=== PATIENT | male | born 1950 | race Caucasian/White ===

== ENCOUNTER 2019-06-12 16:07 | Observation (INO) ==
--- NOTE | 2019-06-12 16:14 | Diag Imaging Result Doc PS360 ---
CT HEAD W/O CONTRAST - 06/12/2019 INDICATION: stroke like sx COMPARISON: None FINDINGS: The ventricles and sulci are normal in size and contour. No intracranial mass or hemorrhage. The skull is intact. The sinuses mastoids and middle ears are clear. There are moderate arterial calcifications of the carotid siphons bilaterally. IMPRESSION: No acute disease. This exam was performed using automated exposure control, adjustment of mA or kV according to patient size, and/or use of iterative reconstruction technique Electronically signed by Yan Prajapati 06/12/2019 4:12 PM
[2019-06-12 17:40] LABS: BASO# 0.05 X1000 (0.0-0.2); BASO% 0.5 % (0.0-0.8); EOS# 0.32 X1000 (0.0-0.7); EOS% 2.9 % (0.0-10.0); HEMATOCRIT 43.5 % (42.0-52.0); HEMOGLOBIN 14.9 g/dL (14.0-18.0); IMM GRAN# 0.02 X1000 (0.0-0.04); IMM GRAN% 0.2 % (0.0-0.5); LYMPH# 2.24 X1000 (1.2-3.4); LYMPH% 20.6 % (20.5-51.1); MCH 28.7 PG (27-31); MCHC 34.3 g/dL (33-37); MCV 83.8 FL (81-99); MONO# 0.56 X1000 (0.11-0.59); MONO% 5.1 % (1.7-9.3); MPV 10.9 FL (7.4-10.4); NEUT% 70.7 % (42.2-75.2); PLT 190 X1000 (130-400); RBC 5.19 XMIL (4.7-6.1); WBC 10.89 X1000 (4.8-10.8)
[2019-06-12 17:44] LABS: PROTIME 13.3 Seconds (11.0-16.0)
[2019-06-12 17:45] LABS: PTT 33.7 Seconds (22.3-41.8)
[2019-06-12 18:11] LABS: AGAP 14; ALB/GLOB RATIO 1.9; ALBUMIN 4.4 g/dL (3.5-5.0); ALKALINE PHOSPHATASE 63 U/L (32-122); BUN 15 mg/dL (8-22); CALCIUM 8.9 mg/dL (8.8-10.2); CHLORIDE 100 mmol/L (98-107); COSMO 281; CREATININE 0.9 mg/dL (0.7-1.2); ESTIMATED GFR > 60; GLUCOSE 116 mg/dL (70-104); GOT 23 U/L (10-34); GPT 23 U/L (10-44); SODIUM 140 mmol/L (136-145); TCO2 26 mmol/L (25-35); TOTAL BILIRUBIN 0.56 mg/dL (0.20-1.00); TOTAL PROTEIN 6.7 g/dL (6.3-8.3)
--- NOTE | 2019-06-12 18:13 | Diag Imaging Result Doc PS360 ---
CHEST-PORTABLE - 06/12/2019 INDICATION: weak COMPARISON: None FINDINGS: There are CABG changes. Heart size and pulmonary vascularity is top normal. No infiltrates or edema. No pneumothorax or pleural effusion. IMPRESSION: No specific abnormality. Electronically signed by Yan Prajapati 06/12/2019 6:10 PM
--- NOTE | 2019-06-12 18:31 | EKG Report ---
Test Performed on : 06/12/2019 5:18:17 PM Test Reason : stroke Blood Pressure : / mmHG Vent. Rate : 058 BPM Atrial Rate : 058 BPM P-R Int : 198 ms QRS Dur : 096 ms QT Int : 438 ms P-R-T Axes : 009 014 059 degrees QTc Int : 429 ms Sinus bradycardia. Inferior infarct , age undetermined Abnormal ECG No previous ECGs available Unconfirmed Result
--- NOTE | 2019-06-12 18:52 | PROVIDER DOCUMENTATION ---
This chart was entered by Eleanor Lazar Scribe, acting as scribe for Shan Delgado MD. HPI-Neurological Disorder - General Stated Complaint: STROKE LIKE SYMPTOMS Time Seen by Provider: 06/12/19 16:27 Source: patient Allergies/Adverse Reactions: Patient Allergies Allergy/AdvReac Type Severity Reaction Status Date / Time No Known Allergies Allergy Verified 06/12/19 17:21 Home Medications: Home Medication List Medication Instructions Recorded Confirmed Last Taken Type LISINOpril [Prinivil] 1 tab PO BID 10/21/16 10/24/16 10/24/16 07:00 History 1 TAB Metformin [Glucophage] 2 tab PO BID 10/21/16 10/24/16 10/24/16 07:00 History 2 TAB Nitrofurantoin Macrocrystal 1 tab PO DAILY 10/21/16 10/24/16 10/24/16 07:00 History [Nitrofurantoin] 1 TAB Tamsulosin [Flomax] 1 tab PO DAILY 10/21/16 10/24/16 10/24/16 07:00 History 1 TAB Ciprofloxacin [Cipro] 250 mg PO BID #6 tablet 10/24/16 Unknown Rx Phenazopyridine HCl [Pyridium] 100 mg PO TID #10 tablet 10/24/16 Unknown Rx - History of Present Illness-Neuro Nature of Presenting Problem: Patient is a 68 year old male who presents to the ED via EMS with stroke like symptoms. Friend states patient had slurred speech and a left side facial droop. Patient reports symptoms started at 1500. Patient states he feels normal currently. Severity: reports: mild Onset/Duration: reports: this afternoon (1500) Timing: reports: gone now Context: reports: impaired speech (slurred), facial droop (left) Character of Deficits: reports: impaired speech (slurred) New weakness or altered sensation location:: reports: left facial Associated Symptoms: reports: denies symptoms Similar Symptoms Previously?: No Recently seen or treated by another doctor?: No Review of Systems - Adult - REVIEW OF SYSTEMS - ADULT Constitutional: reports: no symptoms reported Eyes: reports: no symptoms reported Ears, Nose, Mouth & Throat: reports: no symptoms reported Cardiovascular: reports: no symptoms reported Respiratory: reports: no symptoms reported Gastrointestinal: reports: no symptoms reported Genitourinary: reports: no symptoms reported Musculoskeletal: reports: no symptoms reported Integumentary: reports: no symptoms reported Neurological: reports: no symptoms reported Psychiatric: reports: no symptoms reported Endocrine: reports: no symptoms reported Hematologic/Lymphatic: reports: no symptoms reported Allergic/Immunologic: reports: no symptoms reported All Other Systems: Reviewed and Negative Past History - Adult - PAST MEDICAL HISTORY-ADULT Review of Records: reports: Old Records Reviewed, Nursing Assessment Review, Medications Reviewed, Social history reviewed & non-contributory. Major Childhood Illnesses: reports: denies history Cardiovascular: reports: cardiac disease, HTN, hyperlipidemia Respiratory: reports: denies history Gastrointestinal: reports: denies history Obstetrical/Gynecological: reports: denies history Genitourinary: reports: prostatitis Musculoskeletal: reports: denies history Neurological: reports: denies history Endocrine/Immune: reports: Diabetes Other Conditions: reports: denies history - PRIOR SURGERIES/PROCEDURES Surgical/Procedure History: reports: CABG, cholecystectomy, cardiac stent, hernia repair - IMMUNIZATION STATUS Childhood Immunizations: See Nurse Assessment Flu Vaccine: See Nurse Assessment - FAMILY HISTORY Family History: reviewed, not pertinent - SOCIAL HISTORY Smoking: cigarettes (former) Substance Use: alcohol Alcohol Use Frequency: occasionally Physical Exam- Neurological - Physical Exam-Neuro Initial Vital Signs Reviewed: Yes General Appearance: alert, no apparent distress HENMT: normocephalic/atraumatic, moist mucous membranes Head Injury: no evidence of injury Respiratory: chest non-tender, lungs clear, normal breath sounds Cardiovascular: regular rate, rhythm, no gallop, no murmur Abdominal Exam: normal bowel sounds, non tender, soft carbon lamp cleaner Exam: normal hearing, normal speech Motor/Sensory: no motor deficit, no sensory deficit, no pronator drift Neurologic: grossly normal, no motor/sensory deficits Integumentary: normal color, normal turgor, warm/dry Psych/Mental Status: normal mood/affect, normal thought content, normal thought process, oriented x 3 - Glascow Coma Scale Best Eye Response: (4) open spontaneously Best Verbal Response: (5) oriented Best Motor Response: (6) obeys commands Total Glascow Score: 15 Progress - PLAN OF CARE/RESULTS Progress/Plan/Lab Results: Vital Signs - 8 hr 06/12/19 16:32 Temperature 98.0 F Pulse Rate 59 L Respiratory Rate 18 Blood Pressure 162/82 O2 Sat by Pulse Oximetry 98 Laboratory Results - last 24 hr 0106/12/19 06/12/19 17:26 17:26 17:26 WBC 10.89 H RBC 5.19 Hgb 14.9 Hct 43.5 MCV 83.8 MCH 28.7 MCHC 34.3 RDW Std Deviation 13.0 Plt Count 190 MPV 10.9 H Immature Gran % (Auto) 0.2 Neut % (Auto) 70.7 Lymph % (Auto) 20.6 [place] % (Auto) 5.1 Eos % (Auto) 2.9 Baso % (Auto) 0.5 Immature Gran # (Auto) 0.02 Neut # (Auto) 7.70 H Lymph # (Auto) 2.24 [place] # (Auto) 0.56 Eos # (Auto) 0.32 Baso # (Auto) 0.05 PT 13.3 INR 1.00 PTT (Actin FS) 33.7 Sodium 140 Potassium 4.0 Chloride 100 Carbon Dioxide 26 Anion Gap 14 BUN 15 Creatinine 0.9 Estimated GFR/1.73 m2 > 60 BUN/Creatinine Ratio 17 Glucose 116 H Calculated Osmolality 281 Calcium 8.9 Total Bilirubin 0.56 AST 23 ALT 23 Alkaline Phosphatase 63 Troponin T High Sens Total Protein 6.7 Albumin 4.4 Globulin 2.3 Albumin/Globulin Ratio 1.9 06/12/19 17:26 WBC RBC Hgb Hct MCV MCH MCHC RDW Std Deviation Plt Count MPV Immature Gran % (Auto) Neut % (Auto) Lymph % (Auto) [place] % (Auto) Eos % (Auto) Baso % (Auto) Immature Gran # (Auto) Neut # (Auto) Lymph # (Auto) [place] # (Auto) Eos # (Auto) Baso # (Auto) PT INR PTT (Actin FS) Sodium Potassium Chloride Carbon Dioxide Anion Gap BUN Creatinine Estimated GFR/1.73 m2 BUN/Creatinine Ratio Glucose Calculated Osmolality Calcium Total Bilirubin AST ALT Alkaline Phosphatase Troponin T High Sens 12 Total Protein Albumin Globulin Albumin/Globulin Ratio Orders Category Date Time Status CHEST-PORTABLE [RAD] Stat Exams 06/12/19 16:[address] HEAD W/O CONTRAST [CT] Stat Exams 06/12/19 15:54 Completed CBC WITH ELECTRONIC DIFF [HEME] Stat Lab 06/12/19 17:26 Completed COMPREHENSIVE METABOLIC PANEL [CHEM] Stat Lab 06/12/19 17:26 Completed PROTIME WITH INR [COAG] Stat Lab 06/12/19 17:26 Completed PTT [COAG] Stat Lab 06/12/19 17:26 Completed TROPONIN T HIGH SENSITIVITY Stat Lab 06/12/19 17:26 Completed EKG [EKG] Stat Ther 06/12/19 17:15 Draft upon reeval, patient back to base line neurologic status per daughter. Likely TIA, not a tPA candidate. Discussed with hospitalist service with plan for admission. Result Diagrams: 06/12/19 17:26 06/12/19 17:26 - EKG 1 EKG Read and Signed by:: Shan Delgado (nsr 60 no ectopy) - CT/MRI 1 CT Study: Head Impression: See EMR Report ( CT HEAD W/O CONTRAST - 06/12/2019 INDICATION: stroke like sx COMPARISON: None FINDINGS: The ventricles and sulci are normal in size and contour. No intracranial mass or hemorrhage. The skull is intact. The sinuses mastoids and middle ears are clear. There are moderate arterial calcifications of the carotid siphons bilaterally. IMPRESSION: No acute disease. This exam was performed using automated exposure control, adjustment of mA or kV according to patient size, and/or use of iterative reconstruction technique Electronically signed by Yan Prajapati 06/12/2019 4:12 PM 06/12/19 1612 Interpreting Physician: Yan Prajapati MD Dictated Date/Time: 06/12/19 161 cc: Shan Delgado MD;) Departure - Departure Date of Disposition Decision: 06/12/19 Time of Disposition Decision: 18:51 DIAGNOSIS: TIA (transient ischemic attack) Disposition: ADMITTED INPATIENT 09 Certified Medical Emergency: Emergent Condition: Serious - Critical Care Note This patient required my direct & personal management of CC.: No Attestation - Physician/ MASON Attestation The physician spent face to face time with patient:: Yes Advanced Practice Provider documentation review:: Supervising physician onsite and consulted in the evaluation and care of this patient. The physician did have a face to face encounter with the patient. This chart was documented by the indicated scribe, (Eleanor Lazar Scribe) and accurately reflects the services I performed and decisions made by me, Shan Delgado MD, as attested by the provider's signature.
[2019-06-12] MEDS ORDERED: LIPITOR PO SCH (23:00)
[2019-06-12] MEDS: NS 1,000 ML IV SCH (23:26)
[2019-06-13] MEDS ORDERED: CRESTOR PO ONE (00:03)
[2019-06-13 05:40] LABS: HEMOGLOBIN A1C 6.2 % (4.8-6.0)
[2019-06-13 05:49] LABS: CHOLESTEROL 117 mg/dL (0-200); HDL 32 mg/dL (35-55); LDL 59 mg/dL; TRIGLYCERIDES 131 mg/dL (39-160); VLDL 26 mg/dL
[2019-06-13] MEDS ORDERED: ELAVIL PO SCH ×2 (09:00→21:00)
[2019-06-13] MEDS ORDERED: ASPIRIN PO SCH (09:00)
[2019-06-13] MEDS ORDERED: FISH OIL CONCENTRATE PO SCH (09:00)
[2019-06-13] MEDS ORDERED: LOPRESSOR PO SCH (09:00)
[2019-06-13] MEDS ORDERED: LOVENOX SUBQ SCH (09:00)
--- NOTE | 2019-06-13 09:34 | HISTORY AND PHYSICAL ---
CHIEF COMPLAINT: Slowed speech which was noted prior to admission. HISTORY OF PRESENT ILLNESS: Mr. Simran Guevara is a 68-year-old male who has a history of coronary artery disease, hypertension as well as type 2 diabetes mellitus. The patient developed sudden onset of slurred speech about 3 p.m. on 06/12/2019. According to the patient, it lasted about 10 minutes. Denies any headaches, dizziness, loss of consciousness. Denies any weakness in the limbs. No previous history of CVA. Presented to the hospital. The patient did have a CT scan of the brain done without contrast which did not reveal any acute disease. The patient has now been admitted to the floor now for further management. PAST MEDICAL HISTORY: Hypertension, type 2 diabetes mellitus, coronary artery disease as well as hyperlipidemia. PAST SURGICAL HISTORY: The patient has had CABG, cholecystectomy, PTCA as well as a hernia repair. SOCIAL HISTORY: No history of cigarette smoking, alcohol or drug use. ALLERGIES: No known drug allergies. FAMILY HISTORY: Positive for cancer. MEDICATIONS: Include the following: Aspirin 325 mg p.o. daily, lisinopril 20 mg p.o. twice a day, metformin 1 g twice a day, rosuvastatin 10 mg p.o. at bedtime, Elavil 10 mg p.o. daily, metoprolol 25 mg p.o. daily, [place]-3 fatty acid 1 capsule twice a day. REVIEW OF SYSTEMS: Constitutional: No fever. Central nervous system: No headaches. Eyes: No blurred vision. ENT: Hearing loss in the right ear. Cardiovascular: No chest pain. Respiratory: Has cough. Gastrointestinal: No nausea, vomiting, diarrhea. No abdominal pain. Genitourinary: No dysuria. Dermatology: No skin lesions. Hematology: No bleeding problems. Musculoskeletal: No joint pains. Endocrinology: Has diabetes. No thyroid disease. Psychiatric: No anxiety or depression. Allergic/immunology: No symptoms suggestive of allergic rhinitis. PHYSICAL EXAMINATION: VITAL SIGNS: Temperature 97.8 degrees, pulse 70, respirations 20, blood pressure 146/81, oxygen saturation 95%. HEENT: Patient is atraumatic, normocephalic. He is anicteric. Pupils are equal, poorly reactive to light. Extraocular movements intact. No oral lesions noted. NECK: No lymphadenopathy or thyromegaly. CARDIOVASCULAR: S1, S2. RESPIRATORY: Has evidence of good air entry bilaterally. ABDOMEN: Soft, nontender. No masses felt. EXTREMITIES: No evidence of edema. CENTRAL NERVOUS SYSTEM: The patient is awake, alert, well oriented. Speech is normal. Has good strength in the extremities. The patient's gait is not assessed. LABORATORY DATA: WBCs 10.89, hematocrit is 43.5 with a platelet count of 190,000. INR is 1.0. Sodium is 140, potassium 4.0, chloride is 100, bicarb 26, BUN is 15, creatinine 0.9. DIAGNOSTIC DATA: CT scan of the brain, no acute disease. Chest x-ray, no specific abnormalities noted. EKG shows evidence of sinus bradycardia with evidence of inferior infarct, age undetermined. ASSESSMENT AND PLAN: 1. Probable transient ischemic attack. We will maintain patient on aspirin. Place patient on a statin. Obtain an MRI of the brain as well as an MRA of the brain. Also get an MRA of the neck. A 2D echo of the heart. Place patient on telemetry. Recommend PT and OT as well as Speech Therapy as well evaluation. Check a lipid panel. Maintain patient on Lovenox 40 subcutaneous [*]a day. The patient will need stroke education. 2. Hypertension. Allow for permissive hypertension. 3. Coronary artery disease. Asymptomatic. Place patient on telemetry. Check cardiac enzymes. Maintain patient on aspirin, beta chiara, as well as a statin. 4. Diabetes mellitus. Monitor blood sugar levels and maintain patient on sliding scale insulin. Check a hemoglobin A1c level. 5. Hyperlipidemia. Continue statin. Follow up on lipid panel. 6. Deep vein thrombosis prophylaxis. Lovenox. 7. Gastrointestinal prophylaxis. Proton pump inhibitor. cc: Jose Carr MD
[2019-06-13 11:04] VITALS: BP 148/76
[2019-06-13] MEDS: HUMULIN R SUBQ SCH ×2 (12:24→17:45)
--- NOTE | 2019-06-13 12:40 | Diag Imaging Result Doc PS360 ---
MRI BRAIN W/WO CONTRAST - 06/12/2019 INDICATION: r/o cva COMPARISON: Head CT 06/12/2019 FINDINGS: There is no area of restricted diffusion. The ventricles and sulci are normal in size and contour. No intracranial mass or hemorrhage. No significant white matter chronic microvascular ischemia. Midline structures including optic chiasm and pituitary appear normal. IMPRESSION: Negative exam. Electronically signed by Yan Prajapati 06/13/2019 12:37 PM
--- NOTE | 2019-06-13 12:44 | Diag Imaging Result Doc PS360 ---
MRA BRAIN W/O CONTRAST - 06/12/2019 INDICATION: r/o cva TECHNIQUE: Noncontrast [id number] technique was used COMPARISON: None FINDINGS: There is some smooth atherosclerotic vascular narrowing of both carotid siphons. This is moderate with about 50% narrowing bilaterally. On the right side, the anterior and middle cerebral arteries are widely patent. On the left side, the anterior cerebral artery is patent. There is a small focal plaque in the proximal M1 segment of the left middle cerebral artery. This produces mild stenosis of about 25%. The vertebral basilar arteries are all normal. The posterior cerebral arteries are patent. The major cerebellar arteries are patent. IMPRESSION: 1. Moderate atherosclerotic narrowing of the supraclinoid internal carotid arteries bilaterally. 2. Small focal plaque in the proximal, M1 segment of the left middle cerebral artery. Electronically signed by Yan Prajapati 06/13/2019 12:42 PM
--- NOTE | 2019-06-13 12:45 | Diag Imaging Result Doc PS360 ---
MRA NECK W/O CONT - 06/12/2019 INDICATION: r/o cva TECHNIQUE: Noncontrast time of flight technique was used COMPARISON: None FINDINGS: The arteries of the neck are patent bilaterally. There is no significant stenosis. No aneurysm. Anatomy is conventional. IMPRESSION: Negative exam. Electronically signed by Yan Prajapati 06/13/2019 12:43 PM
[2019-06-13] MEDS: NS 1,000 ML IV SCH (14:31)
[2019-06-13] MEDS ORDERED: CRESTOR PO SCH ×2 (21:00)
[2019-06-14] MEDS ORDERED: PRILOSEC PO SCH (07:00)
--- NOTE | 2019-06-14 12:40 | ECHO REPORT ---
ORDER DATE: 06/13/2019 INDICATIONS: CVA. FINDINGS: 1. Right atrium appears normal in size. 2. Trace tricuspid regurgitation. Insufficient data to estimate RV systolic pressure. 3. Normal RV size and systolic function. 4. Trace pulmonic insufficiency. 5. Normal left atrial size. 6. No mitral valve prolapse, and trace mitral regurgitation. 7. Dilated left ventricle with an end-diastolic dimension of 5.8 cm. Mild left ventricular hypertrophy with a posterior and interventricular septal wall thickness 1.2 cm. Normal LV systolic function. Estimated EF of 55% to 60% percent with normal wall motion. 8. Aortic valve opens well. It is trileaflet. No evidence of stenosis or insufficiency. 9. Aorta appears normal visualized segments. 10. No pericardial effusion is identified. cc: MD Noman Day MD
--- NOTE | 2019-06-15 13:49 | DISCHARGE SUMMARY ---
ADMISSION DATE: 06/12/2019 DISCHARGE DATE: 06/13/2019 DISCHARGE DIAGNOSES: 1. Transient ischemic attack. 2. Hypertension. 3. Coronary artery disease. 4. Diabetes mellitus type 2. 5. Hyperlipidemia. CONSULTATIONS: None. PROCEDURES: 1. Head CT done on admission showed no acute disease. 2. Brain MRI showed negative exam. 3. Brain MRA showed moderate arteriosclerotic narrowing of the supraclinoid internal carotid arteries bilaterally with small focal plaque in the proximal M 1 segment of the left middle cerebral artery. 4. Echocardiogram showed ejection fraction 55 to 60 percent with no pericardial effusion identified. No gross valvular abnormalities. 5. Neck MRA showed negative exam. HOSPITAL COURSE: This is a 68-year-old male with history of coronary artery disease, hypertension and diabetes, who presented to the emergency department because of sudden onset of slurred speech that has been going on for almost a day that lasts approximately 10 minutes. Upon ER evaluation, CT of the head did not show any gross abnormalities. For further workup of TIA versus MRI, he was admitted. MRI of the brain as well as MRA of head and neck shows as above. Echocardiogram also as well. At this point, patient feels much more stable with no problem with speech. So he is going to be discharged in stable condition and recommended follow up with his primary care physician in a week. DISCHARGE PHYSICAL EXAMINATION: Vital Signs: Temperature 97.6 degrees, heart rate 68, respiratory rate 18, blood pressure 148/76, O2 saturation 98% on room air. General Examination: This is a 68-year-old male, lying in bed in no acute distress. Cardiovascular exam: S1, S2 heard. No murmurs, gallops, or rubs. Regular rate and rhythm. Respiratory exam: Clear bilaterally to auscultation. No work of breathing or using accessory muscles. Abdomen: Soft, nontender to palpation. Bowel sounds present. No organomegaly. Extremities: No clubbing, cyanosis, or edema. Peripheral pulses present in both legs. Neurological exam: The patient is alert and oriented x3. Moves 4 extremities. DISCHARGE DISPOSITION: 1. Home to self-care. 2. Follow up with his primary care physician in a week. LIST OF MEDICATIONS: We are not going to make any changes to his current medications. cc: Noman Crawford MD
== END 2019-06-13 19:25 | disposition home or self-care (01) ==
LOC: ED 16:07 → SUATTDRO 22:56 → EDIPHOLD 22:56 → INTOOBSV 22:56 → 4N 06-13 06:55
PROVIDERS: ATTEND Internal Medicine